=== PATIENT | male | born 1945 | race Caucasian/White ===

== ENCOUNTER 2016-12-11 12:56 | Emergency (ER) | payer OTHER ==
[2016-12-11] MEDS ORDERED: ASPIRIN 81 MG CHEW TAB PO ONE (12:58)
--- NOTE | 2016-12-11 13:02 | ED Physician Documentation ---
General Adult - HISTORIAN Historian: patient - HPI Stated Complaint: diaphoresis, nausea Chief Complaint: General Adult Onset: hours Timing: still present Severity: moderate Further Comments: yes (Pt is a 71 yo male presenting with dizziness and diaphoresis which began while he was having lunch at a local restaurant. Pt denies chest pain, sob, but has had nausea. 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 Chemstick = 169 on presentation. SpO2=90% RA. Pt has hx PTSD and was seen this am at [facility] for psych appt. before coming to [place].) - ROS CONST: weakness, other (dizzy) EYES/ENT: none CVS/RESP: none GI/: nausea MS/SKIN/LYMPH: other (pallor) NEURO/PSYCH: dizziness - PAST HX Past History: COPD, hypertension, other (DMII, HLD, PTSD, Nephrectomy s/p abd cancer NOS.) Surgeries/Procedures: other (R nephrectomy, abd cancer surg.) Allergies/Adverse Reactions: Allergies Allergy/AdvReac Type Severity Reaction Status Date / Time No Known Allergies Allergy Verified 12/11/16 13:05 Home Medications: Ambulatory Orders Medication Instructions Recorded Unobtainable [Unobtainable] 12/11/16 - SOCIAL HX Smoking History: cigarettes (Hx heavy smoking, now 1/2 ppd.) - FAMILY HX Family History: No - REVIEWED ASSESSMENTS Nursing Assessment Reviewed: Yes Vitals Reviewed: Yes Progress - Progress Progress: Zofran 4 mg IV NS 1 L IVF Hemocult - neg CT chest, PE protocol: No evidence for pulmonary embolism by CT criteria. No evidence for thoracic aortic dissection or abnormality. Soft tissue nodules right upper lung. Currently subcentimeter in diameter. Continued followup recommended until 2 years were the stability have been documented. Alternatively, consider PET scan imaging to assess for metabolic activity if lung carcinoma a significant consideration. Pulmonary granuloma. Extensive emphysematous changes. Presumed right nephrectomy surgery. Correlate with history. Attempted transfer to [place]. Pro. No beds. Transfer to . [facility]. Dr. Bashir Pino. - EKG/XRAY/CT EKG: NSR (HR=90; Normal WI interval; RAD; possible RIGHT ventricular hypertrophy.) XRAY: chest ( Mild infiltrate right upper lung. No effusion. (Infiltrate not found in CT study. See progress section.)) ED Results Lab/Radiology - Orders Orders: ED Orders Category Date Time Status Continuous EKG monitoring Q30M Care 12/11/16 12:58 Ordered Continuous Pulse Oximetry Q30M Care 12/11/16 12:58 Ordered CHEST 1 VIEW [RAD] Stat Exams 12/11/16 12:58 Ordered CBC/PLATELET/DIFF Routine Lab 12/11/16 12:58 Ordered CKMB Stat Lab 12/11/16 Ordered CMP Routine Lab 12/11/16 12:58 Ordered CREATINE KINASE Routine Lab 12/11/16 12:58 Ordered D DIMER Stat Lab 12/11/16 Ordered NT-proBNP Stat Lab 12/11/16 Ordered TROPONIN I (cTnI) Stat Lab 12/11/16 12:58 Ordered Aspirin Med 12/11/16 12:58 Once 324 mg PO NOW ONE Oxygen Daily Oxygen 12/11/16 13:00 Ordered EKG WITH COMPARISON Stat Ther 12/11/16 12:58 Ordered General Adult Physical Exam - PHYSICAL EXAM GENERAL APPEARANCE: moderate distress (thin, pale) EENT: eye inspection normal, ENT inspection normal, pharynx normal NECK: normal inspection, supple RESPIRATORY: no resp distress, chest non-tender, other (distant breath sounds) CVS: reg rate & rhythm, heart sounds normal, other (distant heart sounds) ABDOMEN: soft, tenderness (mild diffuse) RECTAL: normal exam, normal rectal tone, heme negative stool BACK: normal inspection, no CVA tenderness SKIN: pallor EXTREMITIES: non-tender, normal range of motion, no evidence of injury, no edema NEURO: oriented X3, motor nml, sensation nml Discharge Clincal Impression: Near syncope, diaphoresis, Elevated d-dimer, Total bilirubin, elevated, emphysema, R upper lung nodules Referrals: Primary Doctor,No [Primary Care Provider] - Home Medications: Ambulatory Orders Unobtainable [Unobtainable] 12/11/16 Condition: Stable Disposition: 02 XFER SHT-TRM HOSP Decision to Admit: NO Decision Time: 15:47
[2016-12-11] MEDS ORDERED: 0.9 % SODIUM CHLORIDE 1,000 ML IV ONE ×2 (13:03)
[2016-12-11] MEDS ORDERED: ONDANSETRON HCL/PF 4 MG/ 2ML VIAL ONE (13:05)
[2016-12-11] MEDS ORDERED: ONDANSETRON HCL/PF 4 MG/ 2ML VIAL IVP ONE (13:14)
[2016-12-11 13:19] LABS: BASOPHILS % 0.7 (0.0-1.5); EOSINOPHILS % 1.2 % (0.0-6.8); MEAN CORPUSCULAR HEMOGLOBIN 34.5 pg (28.0-34.0); MONOCYTES % 4.8 % (0.0-11.0); NEUTROPHILS # 8.9 # k/uL (1.4-7.7)
--- NOTE | 2016-12-11 13:28 | Diagnostic Imaging Report ---
ROBBIE JORGE [facility] [address] [facility] [address] [address] Report Submission Date: Dec 11, 2016 1:27:48 PM CDT Patient Study Name: BABITA YOUNGER Date: Dec 11, 2016 1:07:00 PM CDT Modality Type: CR Gender: M Description: CHEST : 49 Institution: [facility] Physician: ROBBIE JORGE Examination: Portable chest History: Chest discomfort Comparison exam: None provided Findings: Single view of the chest demonstrates a normal cardiac and mediastinal silhouette. Few vascular calcifications involving the aortic arch. Mild parenchymal haziness involving the inferior margin of the right upper lung. Right lower lung granuloma. No effusion. Osseous structures are appropriate for age. Impression: Mild infiltrate right upper lung. No effusion Electronically signed on Dec 11, 2016 1:27:48 PM CDT by: Daquan CHINO
[2016-12-11 13:32] LABS: eGFR (African) > 60; eGFR (Non-African) > 60
[2016-12-11 16:35] VITALS: BP 108/59
--- NOTE | 2016-12-11 19:16 | Diagnostic Imaging Report ---
ROBBIE JORGE [facility] [address] [facility] [address] [address] Report Submission Date: Dec 11, 2016 1:27:48 PM CDT Patient Study Name: BABITA YOUNGER Date: Dec 11, 2016 1:07:00 PM CDT Modality Type: CR Gender: M Description: CHEST : 49 Institution: [facility] Physician: ROBBIE JORGE Examination: Portable chest History: Chest discomfort Comparison exam: None provided Findings: Single view of the chest demonstrates a normal cardiac and mediastinal silhouette. Few vascular calcifications involving the aortic arch. Mild parenchymal haziness involving the inferior margin of the right upper lung. Right lower lung granuloma. No effusion. Osseous structures are appropriate for age. Impression: Mild infiltrate right upper lung. No effusion Electronically signed on Dec 11, 2016 1:27:48 PM CDT by: Daquan CHINO
[2016-12-12 05:40] LABS: APPEARANCE,URINE CLEAR (CLEAR); COLOR,URINE YELLOW (YELLOW); OCCULT BLOOD,URINE TRACE-LYSED (NEGATIVE); UROBILINOGEN URINE 0.2 Eu (0.2-1.0)
== END 2016-12-11 16:17 | disposition short-term general hospital (02) ==
LOC: ED 12:56
DX: J43.9 Emphysema, unspecified (principal); R55 Syncope and collapse; R61 Generalized hyperhidrosis; R91.1 Solitary pulmonary nodule
CPT/HCPCS: 71010; 71275; 80053; 82550; 82553; 83880; 84484; 85025; 85379; 85610; 85730; 87040; J2405; J7030; Q9966; 81002; 96361; 96374; 99284; S1016